=== PATIENT | female | born 1935 | race Caucasian/White ===

== ENCOUNTER 2017-12-05 22:46 | Emergency (ER) | payer MEDICARE, OTHER ==
[2017-12-05 22:52] VITALS: BP 153/70; TEMP 97.4
[2017-12-05 23:57] LABS: BASO % 0.4 % (0.0-2.0); EOS # 0.1 (0.0-0.7); EOS % 1.4 % (0-4.0); GRAN # 6.9 (1.4-6.5); GRAN % 76.5 % (42.2-75.2); HEMOGLOBIN 14.9 g/dl (12.5-16.0); LYMPH # 1.3 (1.2-3.4); LYMPH % 14.8 % (20.0-51.0); MEAN CELL VOLUME 95 fl (80.0-100.0); MEAN CORPUSCULAR HEMOGLOBIN 33 pg (27.0-31.0); MEAN CORPUSCULAR HGB CONC 35 g/dl (33.0-37.0); MEAN PLATELET VOLUME 8.5 fl (7.4-10.4); MONO # 0.6 (0.1-0.6); MONO % 6.6 % (1.7-9.3); PLATELET COUNT 184 K/mm3 (130-400); RED BLOOD COUNT 4.51 M/mm3 (4.10-5.30); REDCELL DISTRIBUTION WIDTH-CV 13.3 % (11.5-14.5)
[2017-12-06 00:08] LABS: COLLECTION METHOD CLEAN CATCH
[2017-12-06 00:10] LABS: ALBUMIN 4.2 gm/dL (3.5-5.0); BILIRUBIN,TOTAL 0.6 mg/dL (0.0-1.0); CALCIUM 9.2 mg/dL (8.4-10.2); CREATININE, serum 0.87 mg/dL (0.52-1.25); POTASSIUM 3.1 mmol/L (3.4-5.0); TOTAL PROTEIN 7.8 gm/dL (6.4-8.2)
[2017-12-06] MEDS ORDERED: XARELTO20 MG PO (00:14)
[2017-12-06] MEDS ORDERED: SYNTHROID 0.0.025 MG PO (00:14)
[2017-12-06] MEDS ORDERED: HCTZ 25MG TAB25 MG PO (00:14)
[2017-12-06] MEDS ORDERED: K-TAB10 PO (00:15)
[2017-12-06] MEDS ORDERED: TOPROL XL 25MG25 MG PO (00:15)
[2017-12-06 00:16] LABS: PH 7 (5-8); SQUAMOUS EPITHELIAL 20-50 /hpf; URINE APPEARANCE Cloudy; URINE BACTERIA None Seen /hpf; URINE BILIRUBIN Negative (NEGATIVE); URINE BLOOD 2+ (NEGATIVE); URINE COLOR Red; URINE GLUCOSE Negative (NEGATIVE); URINE KETONE Negative (NEGATIVE); URINE LEUKOCYTE ESTERASE 1+ (NEGATIVE); URINE NITRATE Negative (NEGATIVE); URINE PROTEIN(semi-quant) 2+ (NEGATIVE); URINE RBC >50 /hpf; URINE UROBILINOGEN Negative (NEGATIVE)
[2017-12-06] MEDS ORDERED: DULCOLAX STOOL100 MG PO (00:16)
[2017-12-06] MEDS ORDERED: LASIX 20MG TABL20 MG PO (00:16)
[2017-12-06] MEDS ORDERED: PRESERVISION1 SGL PO (00:18)
[2017-12-06] MEDS ORDERED: OMNICEF 300MG300 MG PO (02:05)
[2017-12-06 02:10] VITALS: PULSE 72
== END 2017-12-06 02:17 | disposition home or self-care (01) ==
LOC: COL.ER 22:46
PROVIDERS: Physician Assistant
DX: N39.0 Urinary tract infection, site not specified (principal); R80.9 Proteinuria, unspecified; I48.91 Unspecified atrial fibrillation
CPT/HCPCS: J0696; J7030